=== PATIENT | male | born 1965 | race Caucasian/White ===

== ENCOUNTER 2017-02-19 16:28 | Outpatient (CLI) | payer OTHER ==
--- NOTE | 2017-02-20 07:57 | RAD ---
TWO VIEW CHEST: HISTORY: Shortness of breath. FINDINGS: Lung christianson appear clear. No infiltrate identified. No effusion. Heart size is upper normal. Osse ous structures are unremarkable. IMPRESSION: No evidence of acute process. POS: [facility]
== END 2017-02-19 16:29 | disposition home or self-care (01) ==
LOC: RAD-FRANK 16:28
PROVIDERS: ATTEND Nurse Practitioner Family
DX: R06.02 Shortness of breath (principal)
CPT/HCPCS: 71020

== ENCOUNTER 2017-06-23 15:40 | Inpatient (IN) | payer OTHER ==
[2017-06-23 17:12] LABS: #Eosinphils 0.1 thou/uL (0.0-0.7); #Lymphocytes 1.3 thou/uL (1.20-3.40); #Monocytes 0.7 thou/uL (0.11-0.59); #Neutrophils 12.3 thou/uL (1.40-6.50); %Eosinophils 0.4 % (0.0-10.0); %Monocytes 4.8 % (0.0-10.0); %Neutrophils 85.8 % (42.0-75.0); Hemoglobin 16.3 g/dL (14.0-18.0); Mean Corpuscular HGB CONC 33.1 g/dL (32.0-36.0); Mean Corpuscular Hemoglobin 32.3 pg (27.0-31.0); Mean Corpuscular Volume 97.6 fl (80.0-94.0); Mean Platelet Volume 7.5 fL (7.4-10.4); Platelet Count 121 thou/uL (130-400); RBC Distribution Width 11.3 % (11.5-14.5); Red Blood Cell (RBC) Count 5.04 mill/uL (4.70-6.10); White Blood Cell (WBC) Count 14.3 thou/uL (4.8-10.8)
[2017-06-23 17:35] LABS: ALT (SGPT) 43 U/L (8-55); AST (SGOT) 26 U/L (5-34); Alkaline Phosphatase 90 U/L (40-150); Anion Gap 14 mmol/L (10-20); BUN (Urea Nitrogen) 16 mg/dL (8.9-20.6); Bilirubin, Total 1.2 mg/dL (0.2-1.2); Calc. Creatinine Clearance 0 mL/min (70-130); Calcium 9.1 mg/dL (7.8-10.44); Carbon Dioxide 24 mmol/L (22-29); Chloride 100 mmol/L (98-107); Estimated GFR-MDRD 77; Globulin 3.6 g/dL (2.4-3.5); Glucose 158 mg/dL (70-105); Potassium 3.9 mmol/L (3.5-5.1); Protein, Total 7.6 g/dL (6.0-8.3); Sodium 134 mmol/L (136-145)
[2017-06-23] MEDS ORDERED: MEROPENEM 1 GM/50 ML 1 GM in Premix Bag 1 BAG IVPB SCH (18:30)
--- NOTE | 2017-06-23 19:36 | RAD ---
RIGHT TIBIA AND FIBULA TWO VIEWS: HISTORY: Pain. COMPARISON: None. FINDINGS: No fracture. No cortical irregularity or periosteal reaction. IMPRESSION: Unremarkable two views right tibia and fibula. POS: [facility]
[2017-06-23] MEDS ORDERED: Adacel (T-DAP) 0.5 ML VIAL ONE (19:56)
--- NOTE | 2017-06-23 20:12 | ULT ---
RIGHT LOWER EXTREMITY VENOUS ULTRASOUND WITH DOPPLER: HISTORY: Pain. Edema. COMPARISON: None. TECHNIQUE: Hernandez-scale, color-flow, and Doppler imaging with spectral wave-form analysis was performed of the rig ht lower extremity venous system. FINDINGS: There is compressibility, presence of flow, and augmentation in the common femoral vein, femoral vein , and popliteal vein. There is flow in the greater saphenous vein, profunda vein, and posterior tibi al vein. Note is made of a lymph node in the right groin, measuring 2.7 cm, with a fatty hilum. IMPRESSION: No evidence of thrombus of the right lower extremity deep venous system. POS: [facility]
--- NOTE | 2017-06-23 20:14 | CT ---
RIGHT LOWER EXTREMITY CT: HISTORY: Erythema. COMPARISON: None. TECHNIQUE: A noncontrast CT is performed in the axial plane. Reformatted images are submitted for interpretatio n. FINDINGS: Mild soft tissue edema. No obvious masses or hematoma. Evaluation is limited by lack of IV contrast . No evidence of fracture. IMPRESSION: 1. No fracture. 2. Nonspecific soft tissue edema. POS: [facility]
[2017-06-23 21:37] VITALS: BMI 42.0
[2017-06-23] MEDS ORDERED: Acetaminophen 325 MG TAB PO PRN (21:48)
[2017-06-23] MEDS ORDERED: HYDROcodone/Acetaminophen 5/325 mg Tablet PO PRN (21:48)
[2017-06-23] MEDS: Sodium Chloride 0.9% 1,000 ML IV SCH (21:58)
[2017-06-23 22:13] LABS: Lactic Acid 1.5 mmol/L (0.5-2.2)
[2017-06-24] MEDS: Vancomycin HCl 1.75 GM in Sodium Chloride 0.9% 500 ML IVPB SCH ×3 (01:53→17:41)
--- NOTE | 2017-06-24 02:36 | HP ---
PRIMARY CARE PHYSICIAN: None. PRESENTING COMPLAINT: "Rash in my leg." HISTORY OF PRESENT ILLNESS: Mr. Anup Ferguson is a 51-year-old male with a past medical history of hypertension, who presents to the emergency room due to pain and swelling in his right leg. Dharmesh g to the patient, yesterday he developed some chills and fever and today he noticed some swelling in his right leg, associated with tenderness and erythema. His then encouraged him to come to the hospital. He denies any nausea or vomiting. No diarrhea. There was no trauma to the legs. He had no fever or chills. He has not had any previous episodes in the past. No history of insect bite. H e rates his pain as 4/10, constant, with no aggravating or relieving factor, it does not radiate. At the emergency room, his vital signs were stable. His labs revealed leukocytosis and there was initi al concern for necrotizing fasciitis as he has had rapid progression of the erythema and swelling. e does have a vascular ultrasound, lower extremity CT as well as a tibia/fibula x-ray done, which wer e all negative. Blood cultures were then taken and he was given one dose of meropenem. He was then admitted for right leg cellulitis. PAST MEDICAL HISTORY: Hypertension. PAST SURGICAL HISTORY: None. FAMILY HISTORY: Reviewed and noncontributory. SOCIAL HISTORY: He does not smoke, but he drinks alcohol occasionally, last drink was on Friday. He does not use illicit drugs. ALLERGIES: None. HOME MEDICATIONS: Atenolol 100 mg daily. REVIEW OF SYSTEMS: A 12-point review of systems conducted and was negative unless as stated in HPI. PHYSICAL EXAMINATION: VITAL SIGNS: Blood pressure 147/83, temperature 97.9 degree Fahrenheit, heart rate 75, respiratory r ate 18, oxygen saturation 98% on room air. GENERAL: Not in acute distress, sleeping comfortably, but easily aroused. Does not seem to be in an y pain. HEENT: Normocephalic, atraumatic. Not pale, anicteric. Moist mucous membranes. PERRLA, EOMI. NECK: Supple, full range of movement. No JVD. RESPIRATORY: Vesicular breath sounds bilaterally. No rales, rhonchi or wheezes. CARDIOVASCULAR: S1, S2, only with regular rate and rhythm. No murmurs, rubs or gallops. ABDOMEN: Soft, nontender, nondistended. Bowel sounds are normoactive. No hepatosplenomegaly. MUSCULOSKELETAL: Erythema, tenderness and swelling in the lateral aspect of the right leg, extensive . SKIN: Rash, erythema as above. EXTREMITIES: No bilateral lower extremity edema. PSYCHIATRIC: Normal mood and affect. NEUROLOGIC: Alert and well oriented. No focal deficits. LABORATORY DATA: WBC 14,300, platelet count 121,000. Serum chemistry largely unremarkable. Blood g lucose 158, sodium 134. Lactic acid initially was 2.7, but on repeat with hydration was 1.5. IMAGING: As stated in the HPI. ASSESSMENT AND PLAN: 1. Right lower leg cellulitis: The patient has been started on IV hydration, we will continue on va ncomycin and ceftriaxone. We will follow up on blood cultures and ensure adequate pain control. 2. Hypertension: Blood pressure is fairly well controlled. We will resume atenolol and monitor blo od pressure. 3. Thrombocytopenia: Unclear etiology, but no signs of acute bleeding. We will avoid heparin based products and monitor platelet count. The patient is ambulatory and young, so would not require any further DVT prophylaxis. CODE STATUS: FULL CODE.
[2017-06-24 04:48] LABS: #Basophils 0.1 thou/uL (0.0-0.2); #Eosinphils 0.1 thou/uL (0.0-0.7); #Lymphocytes 1.1 thou/uL (1.20-3.40); #Monocytes 0.5 thou/uL (0.11-0.59); #Neutrophils 10.1 thou/uL (1.40-6.50); %Basophils 0.7 % (0.0-1.0); %Eosinophils 0.4 % (0.0-10.0); %Lymphocytes 9.4 % (21.0-51.0); %Monocytes 4.5 % (0.0-10.0); Hemoglobin 15.2 g/dL (14.0-18.0); Mean Corpuscular HGB CONC 33.4 g/dL (32.0-36.0); Mean Corpuscular Hemoglobin 32.4 pg (27.0-31.0); Mean Platelet Volume 8.1 fL (7.4-10.4); Platelet Count 113 thou/uL (130-400); RBC Distribution Width 11.3 % (11.5-14.5); Red Blood Cell (RBC) Count 4.68 mill/uL (4.70-6.10); White Blood Cell (WBC) Count 11.9 thou/uL (4.8-10.8)
[2017-06-24 05:00] LABS: Anion Gap 8 mmol/L (10-20); BUN (Urea Nitrogen) 12 mg/dL (8.9-20.6); Calc. Creatinine Clearance 197 mL/min (70-130); Calcium 8.2 mg/dL (7.8-10.44); Carbon Dioxide 25 mmol/L (22-29); Chloride 103 mmol/L (98-107); Estimated GFR-MDRD 86; Glucose 162 mg/dL (70-105); Potassium 3.6 mmol/L (3.5-5.1); Sodium 132 mmol/L (136-145)
[2017-06-24] MEDS: Sodium Chloride 0.9% 1,000 ML IV SCH ×2 (06:08→08:47)
[2017-06-24] MEDS: Atenolol 50 MG TAB PO SCH (08:44)
[2017-06-24] MEDS: cefTRIAXone\\ROCEPHIN 1 GM in Sterile Water 10 ML SLOW IVP SCH (08:45)
[2017-06-24] MEDS ORDERED: Docusate 100 MG CAP PO SCH (09:00)
[2017-06-24] MEDS ORDERED: Heparin 5,000 UNITS/ML VIAL SC SCH (09:00)
[2017-06-24] MEDS ORDERED: Ibuprofen 200 MG TAB PO PRN (13:37)
[2017-06-24] MEDS ORDERED: hydrALAZINE 20 MG/ML VIAL SLOW IVP PRN (13:38)
[2017-06-24] MEDS ORDERED: Polyethylene Glycol 3350 17 GM Packet PO PRN (13:40)
[2017-06-24] MEDS: Ibuprofen 200 MG TAB PO SCH (17:40)
--- NOTE | 2017-06-24 21:37 | PDOC.PN ---
- Subjective Encounter Start Date: 06/24/17 Encounter Start Time: 11:30 Patient seen and examined. No new complaints. No overnight events - Objective Resuscitation Status: Resuscitation Status FULL:Full Resuscitation MAR Reviewed: Yes Vital Signs & Weight: Vital Signs (12 hours) Temp Pulse Resp BP BP Pulse Ox 06/24/17 16:10 98.5 F 77 18 131/62 95 06/24/17 11:35 98.8 F 73 18 127/77 93 L Weight Weight 319 lb 0.142 oz Result Diagrams: 06/24/17 04:13 06/24/17 04:13 Additional Labs: Microbiology 06/23/17 17:02 Venous blood - Right Arm Blood Culture - Preliminary Specimen has been received and culture in progress. No Growth to date. 06/23/17 17:02 Venous blood - Left Arm Blood Culture - Preliminary Specimen has been received and culture in progress. No Growth to date. Laboratory Tests 06/23/17 06/23/17 06/23/17 17:08 17:08 17:08 ESR Westergren 35 Lactic Acid 2.7 H C-Reactive Protein 21.89 H 06/23/17 21:51 ESR Westergren Lactic Acid 1.5 C-Reactive Protein Radiology Reviewed by me: Yes (RLE CT - soft tissue edema) Phys Exam - Physical Examination Constitutional: NAD Neck: no nodes, no JVD, supple Respiratory: no wheezing, no rales, no rhonchi, clear to auscultation bilateral Cardiovascular: RRR, no rub no heaves/pulsations Gastrointestinal: soft, non-tender, no distention, positive bowel sounds Musculoskeletal: pulses present RLE erythema/tenderness - improving Neurological: non-focal, normal sensation, moves all 4 limbs Psychiatric: normal affect, A&O x 3 Dx/Plan - Plan out of bed/ambulate, DVT proph w/SCDs IMPRESSION: 1. Sepsis due to RLE Cellulitis 2. HTN 3. Morbid obesity BMI 42.1 4. Lactic acidosis and thrombocytopenia due to sepsis PLAN: * Cont Vancomcycin and Ceftriaxone * Ambulate * Pain control * Cont Atenolol * Monitor Vanc levels Review of Systems - Review of Systems Respiratory: negative: Cough, Dry, Shortness of Breath, Hemoptysis, SOB with Excertion, Pleuritic Pain, Sputum, Wheezing Cardiovascular: negative: chest pain, palpitations, orthopnea, paroxysmal nocturnal dyspnea, edema, light headedness, other - Medications/Allergies Allergies/Adverse Reactions: Allergies Allergy/AdvReac Type Severity Reaction Status Date / Time No Known Allergies Allergy Verified 09/22/12 11:51 Medications: Current Medications Acetaminophen (Tylenol) 650 mg PO Q4H PRN PRN Reason: Headache/Fever or Pain Hydrocodone Bitart/Acetaminophen ([place] 5/325) 1 tab PO Q4H PRN PRN Reason: Moderate Pain (4-6) Last Admin: 06/24/17 03:50 Dose: 1 tab Atenolol (Tenormin) 100 mg PO DAILY [facility] Last Admin: 06/24/17 08:44 Dose: 100 mg Hydralazine HCl (Apresoline) 10 mg SLOW IVP Q4H PRN PRN Reason: SBP Greater Than 180 Ceftriaxone Sodium 1 gm/ (Sterile Water) 10 mls @ 120 mls/hr SLOW IVP Q24HR [facility] Last Admin: 06/24/17 08:45 Dose: 10 mls Vancomycin HCl 1.75 gm/ Sodium (Chloride) 500 mls @ 250 mls/hr IVPB 0200,1000, 1800 [facility] Last Admin: 06/24/17 17:41 Dose: 500 mls Ibuprofen (Motrin) 400 mg PO Q6H PRN PRN Reason: Moderate Pain (4-6) Ibuprofen (Motrin) 400 mg PO TID-[facility] Stop: 06/25/17 12:01 Last Admin: 06/24/17 17:40 Dose: 400 mg Miscellaneous Medication (Pharmacy To Dose) 1 each IVPB PRN PRN PRN Reason: Pharmacy to dose Polyethylene Glycol (Miralax) 17 gm PO DAILY PRN PRN Reason: Constipation Saccharomyces Boulardii (Florastor) 250 mg PO DAILY [facility] Sodium Chloride (Flush - Normal Saline) 10 ml IVF Q12HR [facility] Last Admin: 06/24/17 20:38 Dose: Not Given Sodium Chloride (Flush - Normal Saline) 10 ml IVF PRN PRN PRN Reason: Saline Flush
[2017-06-25 01:31] LABS: Vancomycin, Trough 12.2 ug/mL
[2017-06-25] MEDS: Ibuprofen 200 MG TAB PO SCH ×2 (09:35→11:25)
[2017-06-25] MEDS: Atenolol 50 MG TAB PO SCH (09:36)
[2017-06-25] MEDS: Saccharomyces boulardii 250 MG CAP PO SCH (09:37)
[2017-06-25] MEDS: cefTRIAXone\\ROCEPHIN 1 GM in Sterile Water 10 ML SLOW IVP SCH (09:38)
[2017-06-25] MEDS ORDERED: Diabetic Tussin 200 MG/10 ML UDCUP PO PRN (18:47)
[2017-06-25] MEDS ORDERED: diphenhydrAMINE 25 MG CAP PO SCH (19:00)
[2017-06-25] MEDS ORDERED: Cepastat Lozenges 1 LOZ PO PRN (21:04)
[2017-06-25] MEDS ORDERED: diphenhydrAMINE 25 MG CAP PO PRN (21:04)
--- NOTE | 2017-06-25 21:05 | PDOC.PN ---
- Subjective Encounter Start Date: 06/25/17 Encounter Start Time: 14:30 Patient seen and examined. No new complaints. No overnight events. RLE swelling improving - Objective Resuscitation Status: Resuscitation Status FULL:Full Resuscitation MAR Reviewed: Yes Vital Signs & Weight: Vital Signs (12 hours) Temp Pulse Resp BP BP Pulse Ox 06/25/17 20:11 98.4 F 68 18 158/89 H 97 06/25/17 09:36 79 154/99 H Weight Weight 319 lb 0.142 oz I&O: 06/24/17 06/25/17 06/26/17 06:59 06:59 06:59 Intake Total 600 1950 Balance 600 1950 Result Diagrams: 06/26/17 03:52 06/26/17 03:52 Phys Exam - Physical Examination Constitutional: NAD Respiratory: no wheezing, no rhonchi Cardiovascular: RRR, no rub Gastrointestinal: soft, non-tender, positive bowel sounds Musculoskeletal: pulses present RLE erythema improving Neurological: moves all 4 limbs Dx/Plan - Plan DVT proph w/SCDs IMPRESSION: 1. Sepsis due to RLE Cellulitis - on Vancomcycin and Ceftriaxone 2. HTN 3. Morbid obesity BMI 42.1 4. Lactic acidosis and thrombocytopenia due to sepsis PLAN: * Cont Atbx * Possible dc in 06/26 if stable * Cont Atenolol * Monitor Vanc levels * Cont current meds as below Review of Systems - Review of Systems Respiratory: negative: Cough, Dry, Shortness of Breath, Hemoptysis, SOB with Excertion, Pleuritic Pain, Sputum, Wheezing Cardiovascular: negative: chest pain, palpitations, orthopnea, paroxysmal nocturnal dyspnea, edema, light headedness, other - Medications/Allergies Allergies/Adverse Reactions: Allergies Allergy/AdvReac Type Severity Reaction Status Date / Time No Known Allergies Allergy Verified 09/22/12 11:51 Medications: Current Medications Acetaminophen (Tylenol) 650 mg PO Q4H PRN PRN Reason: Headache/Fever or Pain Hydrocodone Bitart/Acetaminophen (Hal[place] 5/325) 1 tab PO Q4H PRN PRN Reason: Moderate Pain (4-6) Last Admin: 06/24/17 03:50 Dose: 1 tab Atenolol (Tenormin) 100 mg PO DAILY [facility] Last Admin: 06/25/17 09:36 Dose: 100 mg Diphenhydramine HCl (Benadryl) 25 mg PO Q6H PRN PRN Reason: Itching & Insomnia Guaifenesin (Robitussin Sf) 100 mg PO ONE PRN PRN Reason: . Stop: 06/28/17 18:48 Hydralazine HCl (Apresoline) 10 mg SLOW IVP Q4H PRN PRN Reason: SBP Greater Than 180 Ceftriaxone Sodium 2 gm/ (Sodium Chloride) 100 mls @ 200 mls/hr IVPB DAILY [facility] Vancomycin HCl 2 gm/ Sodium (Chloride) 500 mls @ 250 mls/hr IVPB 0000,0800, 1600 [facility] Last Admin: 06/25/17 15:02 Dose: 500 mls Ibuprofen (Motrin) 400 mg PO Q6H PRN PRN Reason: Moderate Pain (4-6) Loratadine (Claritin) 10 mg PO DAILY [facility] Miscellaneous Medication (Pharmacy To Dose) 1 each IVPB PRN PRN PRN Reason: Pharmacy to dose Polyethylene Glycol (Miralax) 17 gm PO DAILY PRN PRN Reason: Constipation Saccharomyces Boulardii (Florastor) 250 mg PO DAILY [facility] Last Admin: 06/25/17 09:37 Dose: 250 mg Sodium Chloride (Flush - Normal Saline) 10 ml IVF Q12HR [facility] Last Admin: 06/25/17 20:14 Dose: Not Given Sodium Chloride (Flush - Normal Saline) 10 ml IVF PRN PRN PRN Reason: Saline Flush Throat Lozenges (Cepastat Lozenges) 1 hoa PO Q2H PRN PRN Reason: Sore Throat
[2017-06-25 23:23] LABS: Vancomycin, Trough 22.8 ug/mL
[2017-06-26] MEDS: Vancomycin HCl 1.5 GM in Sodium Chloride 0.9% 250 ML 300 ML IVPB SCH ×3 (00:18→15:45)
[2017-06-26 04:45] LABS: #Basophils 0.1 thou/uL (0.0-0.2); #Eosinphils 0.2 thou/uL (0.0-0.7); #Lymphocytes 1.7 thou/uL (1.20-3.40); #Monocytes 0.8 thou/uL (0.11-0.59); #Neutrophils 4.6 thou/uL (1.40-6.50); %Basophils 1.1 % (0.0-1.0); %Eosinophils 2.2 % (0.0-10.0); %Lymphocytes 23.6 % (21.0-51.0); %Neutrophils 62.1 % (42.0-75.0); Hemoglobin 14.3 g/dL (14.0-18.0); Mean Corpuscular HGB CONC 35.1 g/dL (32.0-36.0); Mean Corpuscular Hemoglobin 34.4 pg (27.0-31.0); Mean Corpuscular Volume 97.9 fl (80.0-94.0); Platelet Count 144 thou/uL (130-400); Red Blood Cell (RBC) Count 4.15 mill/uL (4.70-6.10); White Blood Cell (WBC) Count 7.3 thou/uL (4.8-10.8)
[2017-06-26 05:08] LABS: Anion Gap 7 mmol/L (10-20); BUN (Urea Nitrogen) 11 mg/dL (8.9-20.6); Calc. Creatinine Clearance 218 mL/min (70-130); Calcium 8.4 mg/dL (7.8-10.44); Carbon Dioxide 30 mmol/L (22-29); Chloride 105 mmol/L (98-107); Estimated GFR-MDRD Greater than 90; Glucose 99 mg/dL (70-105); Potassium 3.7 mmol/L (3.5-5.1); Sodium 138 mmol/L (136-145)
[2017-06-26] MEDS: metroNIDAZOLE 500 MG TAB PO SCH ×2 (07:54→14:20)
[2017-06-26] MEDS: Saccharomyces boulardii 250 MG CAP PO SCH (07:54)
[2017-06-26 08:18] VITALS: BP 163/81; TEMP 97.9
[2017-06-26] MEDS ORDERED: Loratadine 10 MG TAB PO SCH (09:00)
[2017-06-26] MEDS ORDERED: cefTRIAXone\\ROCEPHIN 2 GM in Sodium Chloride 0.9% 100 ML IVPB SCH (09:00)
[2017-06-26] MEDS: Atenolol 50 MG TAB PO SCH (09:20)
--- NOTE | 2017-06-26 18:28 | DIS ---
DATE OF DISCHARGE: 06/26/2017 DISCHARGE DISPOSITION: Home. FOLLOWUP: With primary care physician, Julianne Francis, in 1 week. DISCHARGE MEDICATIONS: Doxycycline 100 mg twice a day for 14 days, Augmentin 875 mg twice a day for 14 days. ALLERGIES: No known drug allergies. The patient was seen on the day of discharge. Denies any new complaints. No chest pain, shortness o f breath or palpitations. SIGNIFICANT LABORATORIES: 1. ESR 35. CRP 21.89. 2. Lactic acid on admission 2.7. Repeat lactic acid was 1.5. 3. WBC on admission was 14.3, at discharge is 7.3. 4. Sodium on admission 134, at discharge 138. Lowest sodium was 132. 5. Blood cultures negative at 48 hours. 6. Please follow up on final blood cultures. 7. Tibia and fibula x-ray was negative. 8. CT scan of the right lower extremity showed nonspecific soft tissue edema. 9. Ultrasound of the right lower extremity was negative for DVT. BRIEF HOSPITAL COURSE: The patient is a 51-year-old male with hypertension, who [facility] swelling and rash of right lower extremity. Please refer to the history and phy sical dated 06/23/2017 for further details. The patient was admitted to the hospital with a diagnosis of sepsis secondary to right lower extremit y cellulitis. He was started on vancomycin and ceftriaxone. Vancomycin levels were monitored. The swelling and erythema has significantly improved compared to admission. He will continue antibiotics for 2 more weeks. If his swelling persists, then he may benefit from an infectious disease consulta tion or chronic suppressive therapy. Plan of care was discussed with the patient in detail. He stat ed understanding. FINAL DIAGNOSES: 1. Sepsis secondary to right lower extremity cellulitis. 2. Hypertension. 3. Morbid obesity with a BMI 42.1. 4. Lactic acidosis secondary to sepsis. 5. Thrombocytopenia secondary to sepsis. 6. Hyponatremia, resolved. 7. Macrocytosis. 8. Primary care physician advised to follow. 9. Chronic kidney disease stage 2. 10. Elevated inflammatory markers. 11. Please follow up on final blood cultures.
== END 2017-06-26 18:13 | disposition home or self-care (01) | DRG 872 ==
LOC: ERS 15:40 → T4-B 19:00
PROVIDERS: ADMIT Family Medicine; ATTEND Family Medicine
DX: A41.9 Sepsis, unspecified organism (principal); E87.2 Acidosis; E66.01 Morbid (severe) obesity due to excess calories; D69.6 Thrombocytopenia, unspecified; E87.1 Hypo-osmolality and hyponatremia; Z68.41 Body mass index [BMI] 40.0-44.9, adult; L03.115 Cellulitis of right lower limb; N18.2 Chronic kidney disease, stage 2 (mild); I12.9 Hypertensive chronic kidney disease with stage 1 through stage 4 chronic kidney disease, or unspecified chronic kidney disease; D75.89 Other specified diseases of blood and blood-forming organs
CPT/HCPCS: 36415; 80048; 80053; 80202; 82550; 83605; 85025; 85652; 86140; 87040; 90471; 90715; 96361; 96365; 96368; A4216; J0696; J2185; J3370; J7050

== ENCOUNTER 2017-09-01 10:57 | Outpatient (CLI) | payer OTHER ==
--- NOTE | 2017-09-01 13:08 | ULT ---
THYROID ULTRASOUND: Date: 09/01/17 INDICATION: Hypertension, hyperlipidemia, and edema given as reasons for exam. FINDINGS: Both lobes of the thyroid are homogeneous. Right lobe measures 5.1 x 2.2 x 2.5 cm. Left lobe measures 5.1 x 1.7 x 2.4 cm. An ill-defined hypoechoic nodule in the inferior left lobe measures approximately 1.0 cm. There is al so a faint hypoechoic nodule in the inferior right lobe measuring up to 1.2 cm. IMPRESSION: Faint hypoechoic nodules involving the inferior aspect of both lobes. Recommend follow-up ultrasound exam in 6 months to reevaluate. POS: [facility]
== END 2017-09-01 10:58 | disposition home or self-care (01) ==
LOC: SCSULT 10:57
PROVIDERS: ATTEND Nurse Practitioner Family
DX: E78.5 Hyperlipidemia, unspecified (principal); R60.0 Localized edema; I10 Essential (primary) hypertension; E04.2 Nontoxic multinodular goiter
CPT/HCPCS: 76536

== ENCOUNTER 2017-10-01 09:34 | Day surgery (SDC) | payer OTHER ==
[2017-09-30 12:35] VITALS: BMI 38.0
[2017-10-01] MEDS ORDERED: Lidocaine 1% PF 5 ML VIAL ONE (10:23)
[2017-10-01] MEDS ORDERED: Sodium Bicarbonate 2.5 MEQ/5 ML VIAL ONE (10:35)
--- NOTE | 2017-10-01 11:45 | ULT ---
ULTRASOUND GUIDED THYROID FINE NEEDLE ASPIRATION: Date: 10/01/17 HISTORY: Thyroid nodule. COMPARISON: Thyroid ultrasound dated 09/01/17. FINDINGS: The patient was brought to the ultrasound suite and all questions were answered. The thyroid was evaluated with preprocedure imaging. There was actually no definite nodule identified in either lobe. This could be artifactual due to the thickness of the patient's neck and the depth o f the inferior pole of the thyroid. No thyroid fine needle aspiration was performed and there was no definite nodule appreciated. IMPRESSION: No thyroid fine needle aspiration was performed as there was no definite nodule appreciated and was l ikely artifactual due to the depth of the thyroid and the thickness of the neck. Follow-up in 6 month s to 1 year recommended. POS: [facility]
[2017-10-01 13:02] VITALS: BP 145/87; TEMP 98.1
== END 2017-10-01 11:15 | disposition home or self-care (01) ==
LOC: ULT 09:34
PROVIDERS: ATTEND Specialist
DX: E07.89 Other specified disorders of thyroid (principal)
CPT/HCPCS: 76536; J2001

== ENCOUNTER 2018-03-05 07:33 | Outpatient (CLI) | payer OTHER ==
--- NOTE | 2018-03-05 08:15 | RAD ---
TWO VIEW CHEST: COMPARISON: 02/19/2017. FINDINGS: There is o consolidation, effusion, or pneumothorax. Cardiac silhouette is normal in size. Osseous structures intact. IMPRESSION: No focal consolidation. POS: [facility]
== END 2018-03-05 07:34 | disposition home or self-care (01) ==
LOC: RAD-FRANK 07:33
PROVIDERS: ATTEND Nurse Practitioner Family
DX: R06.02 Shortness of breath (principal)
CPT/HCPCS: 71046

== ENCOUNTER 2019-01-27 08:51 | Outpatient (CLI) | payer OTHER ==
--- NOTE | 2019-01-27 09:31 | CT ---
EXAM: CT of the chest with contrast HISTORY: Chest pain with history of costochondritis COMPARISON: None TECHNIQUE: Multiple contiguous axial images were obtained in a CT the chest with contrast. Coronal an d sagittal reformats were performed. FINDINGS: HEART: Normal in size without focal cardiac abnormality MEDIASTINUM: No hilar or mediastinal lymphadenopathy. LUNGS: No focal infiltrates, nodules, or masses. PLEURAL SPACE: No pneumothorax or pleural effusion. CHEST WALL SOFT TISSUES: Unremarkable OSSEOUS STRUCTURES: Degenerative changes in the spine. There is developing calcification of the costo chondral cartilage bilaterally. VISUALIZED SUBDIAPHRAGMATIC STRUCTURES: Postsurgical changes in the stomach. IMPRESSION: No evidence of acute intrathoracic abnormality.
== END 2019-01-27 08:52 | disposition home or self-care (01) ==
LOC: BICCT 08:51
PROVIDERS: ATTEND Nurse Practitioner Family
DX: R07.1 Chest pain on breathing (principal)
CPT/HCPCS: 71260

== ENCOUNTER 2020-02-14 10:18 | Outpatient (CLI) | payer OTHER ==
--- NOTE | 2020-02-14 11:07 | RAD ---
XR Cervical Spine 4 View Min History: Spondylosis Comparison: None. Findings: No acute cervical spine fracture or malalignment. Open-mouth odontoid view is normal. Upper ribs are intact. Flowing bridging osteophytes from C2-C7. No listhesis. No abnormal translation with flexion or extens ion which is limited. The disc spaces are relatively maintained with only minimal narrowing at C3/C4, C4/C5, and C6/C7. Impression: 1. Limited range of motion with flexion/extension due to flowing bridging osteophytes from C2-C7. 2. No acute fracture or malalignment. 3. No listhesis.
--- NOTE | 2020-02-14 11:09 | RAD ---
XR Lumbar Spine Min 4 View History: Pain Comparison: None. Findings: No acute fracture or malalignment. Mild narrowing of the interspinous space L2-L5. No signi ficant listhesis. No translation with flexion or extension. Low-grade posterior L3/L4 and L4/L5 posterior disc space height loss. Impression: 1. Low-grade spondylosis. No acute osseous abnormality. 2. No abnormal translation with flexion or extension. 3. Narrowed interspinous space L2-L5 with osseous remodeling can be a source of chronic pain with lum bar extension.
--- NOTE | 2020-02-14 11:15 | CT ---
CT OF THE THORAX WITHOUT IV CONTRAST INDICATION: Right-sided chest pain COMPARISON: Prior CT the chest with contrast dated January 27, 2019 FINDINGS: LUNGS: No suspicious pulmonary nodule identified. Pleural spaces: Clear Lymph nodes: No pathologically enlarged lymph nodes. Heart and great vessels: The lack of IV contrast limits interrogation of the heart and great vessels. There is scattered thoracic and coronary artery calcifications. Upper abdomen: There is postsurgical change of a prior gastroplasty. The unopacified adrenal glands a re normal appearing. Osseous structures: No acute fracture or subluxation demonstrated. There is scattered degenerative an d osteoarthritic change present. IMPRESSION: No acute cardiopulmonary abnormality.
== END 2020-02-14 10:19 | disposition home or self-care (01) ==
LOC: RAD 10:18
PROVIDERS: ATTEND Physician Assistant Medical
DX: M54.2 Cervicalgia (principal); M54.9 Dorsalgia, unspecified; R07.9 Chest pain, unspecified; M47.816 Spondylosis without myelopathy or radiculopathy, lumbar region; M25.78 Osteophyte, vertebrae
CPT/HCPCS: 71250; 72050; 72110

== ENCOUNTER 2020-03-09 12:47 | Outpatient (CLI) | payer OTHER ==
--- NOTE | 2020-03-09 13:30 | RAD ---
EXAM: XR Hip Rt 2-3 View PROVIDED CLINICAL HISTORY: Pain COMPARISON: None FINDINGS: There is no evidence for fracture or other acute osseous abnormality. There is acetabular over covera ge, which can predispose to femoral-acetabular impingement. Right hip joint space appears preserved. Alignment appears anatomic. Small osteophytes are seen. IMPRESSION: Mild right hip degenerative change.
--- NOTE | 2020-03-09 13:31 | RAD ---
EXAM: XR Sacroiliac Joints >=3 View PROVIDED CLINICAL HISTORY: Sacroiliitis COMPARISON: None FINDINGS: There is no evidence for fracture. The sacroiliac joints appear symmetric in terms of width. There is no periarticular sclerosis or erosion of the subchondral bone plate evident. No lytic or blastic lesions are evident. IMPRESSION: No radiographic evidence for sacroiliitis.
== END 2020-03-09 12:48 | disposition home or self-care (01) ==
LOC: BICRAD 12:47
PROVIDERS: ATTEND Internal Medicine Rheumatology
DX: M25.551 Pain in right hip (principal); M46.1 Sacroiliitis, not elsewhere classified; M16.11 Unilateral primary osteoarthritis, right hip
CPT/HCPCS: 72202

== ENCOUNTER 2020-12-13 12:46 | Outpatient (CLI) | payer OTHER | END 2020-12-13 12:47 | disposition home or self-care (01) | LOC: BICRAD 12:46 | PROVIDERS: ATTEND Neurological Surgery | DX: M54.2 Cervicalgia (principal); M47.812 Spondylosis without myelopathy or radiculopathy, cervical region | CPT/HCPCS: 72050 ==

== ENCOUNTER 2020-12-14 13:15 | Outpatient (CLI) | payer SELFPAY ==
[2020-12-14 14:31] LABS: #Eosinphils 0.1 10x3/uL (0.0-0.5); #Monocytes 0.6 10x3/uL (0.0-1.1); #Neutrophils 4.1 10x3/uL (1.5-8.4); %Basophils 0.5 % (0.0-2.0); %Eosinophils 0.8 % (0.0-6.0); %Lymphocytes 28.7 % (18.0-47.0); %Monocytes 8.3 % (0.0-10.0); %Neutrophils 61.4 % (40.0-75.0); Hemoglobin 15.7 g/dL (13.5-17.5); Mean Corpuscular HGB CONC 33.5 g/dL (32.0-36.0); Mean Corpuscular Hemoglobin 32.3 pg (27.0-33.0); Mean Corpuscular Volume 96.5 fl (81.2-95.1); Mean Platelet Volume 10.7 fl (7.4-10.4); Platelet Count 156 10x3/uL (150-450); RBC Distribution Width 11.5 % (11.5-14.5); Red Blood Cell (RBC) Count 4.86 10x6/uL (4.32-5.72); White Blood Cell (WBC) Count 6.6 10x3/uL (3.5-10.5)
[2020-12-14 14:42] LABS: Anion Gap 11 mmol/L (10-20); BUN (Urea Nitrogen) 12 mg/dL (8.4-25.7); Calc. Creatinine Clearance 0 mL/min (70-130); Calcium 9.8 mg/dL (7.8-10.44); Carbon Dioxide 27 mmol/L (22-29); Chloride 106 mmol/L (98-107); Glucose 83 mg/dL (70-105); Potassium 4.5 mmol/L (3.5-5.1); Sodium 139 mmol/L (136-145)
[2020-12-15 01:06] LABS: SARS-CoV-2 PCR by NAA Not Detected (NotDetected)
== END 2020-12-14 13:16 | disposition home or self-care (01) ==
LOC: LABBT 13:15
PROVIDERS: ATTEND Specialist
DX: Z01.818 Encounter for other preprocedural examination (principal); K64.8 Other hemorrhoids; K64.4 Residual hemorrhoidal skin tags; Z20.822 Contact with and (suspected) exposure to COVID-19
CPT/HCPCS: 80048; 85025; 93005; 93010; U0003; U0005

== ENCOUNTER 2020-12-19 08:28 | Day surgery (SDC) | payer OTHER, SELFPAY ==
[2020-12-18 14:52] VITALS: BMI 31.0
[2020-12-19] MEDS ORDERED: Ketorolac Tromethamine 30 MG/ML VIAL ONE (09:11)
[2020-12-19] MEDS ORDERED: Acetaminophen 500 MG TAB ONE ×2 (09:11→09:12)
[2020-12-19] MEDS ORDERED: ceFAZolin 2 GM/DEX 5% 100 ML BAG ONE (09:11)
[2020-12-19] MEDS ORDERED: Fentanyl 100 MCG/2 ML VIAL ONE ×2 (09:40)
[2020-12-19] MEDS ORDERED: Promethazine HCl 25 MG/ML VIAL ONE (09:40)
[2020-12-19] MEDS ORDERED: PHENYLEPHRINE-NS 100 MCG/ML 10 ML SYRINGE ONE (09:40)
[2020-12-19] MEDS ORDERED: Phenylephrine 10 MG/ML VIAL ONE (09:41)
[2020-12-19] MEDS ORDERED: Bupivacaine 0.25% HCL 30 ML VIAL ONE (09:42)
[2020-12-19] MEDS ORDERED: Lidocaine 1% w/Epinephrine 1:100K 20 ML VIAL ONE (09:42)
[2020-12-19] MEDS ORDERED: Lidocaine 2% Jelly 5 ML TUBE ONE (09:42)
[2020-12-19] MEDS ORDERED: Lidocaine 1% PF 5 ML VIAL ONE (09:55)
[2020-12-19] MEDS ORDERED: Ondansetron PF 4 MG/2 ML Vial ONE (09:55)
[2020-12-19] MEDS ORDERED: Dexamethasone 20 MG/5 ML VIAL ONE (09:55)
[2020-12-19] MEDS ORDERED: PROPOFOL 200 MG/20 ML VIAL ONE (09:55)
[2020-12-19] MEDS ORDERED: Rocuronium Bromide 10 MG/ML (10ML VIAL) ONE (09:55)
[2020-12-19] MEDS ORDERED: Glycopyrrolate 0.2 MG/ML 5 ML SYRINGE ONE (09:55)
== END 2020-12-19 12:40 | disposition home or self-care (01) ==
LOC: SDC 08:28
PROVIDERS: ATTEND Specialist
PROC: 06BY0ZC Excision of Hemorrhoidal Plexus, Open Approach (ICD-10-PCS; principal; 2020-12-19)
DX: K64.8 Other hemorrhoids (principal); I10 Essential (primary) hypertension; F17.210 Nicotine dependence, cigarettes, uncomplicated; M54.50 Low back pain, unspecified; Z98.84 Bariatric surgery status; Z98.890 Other specified postprocedural states; Z79.890 Hormone replacement therapy; Z79.899 Other long term (current) drug therapy
CPT/HCPCS: J1100; J1885; J2370; J2405; J2550; J2704; J3010; S0020

== ENCOUNTER 2022-11-13 08:21 | Outpatient (CLI) | payer OTHER | END 2022-11-13 08:22 | disposition home or self-care (01) | LOC: RAD-FRANK 08:21 | PROVIDERS: ATTEND Nurse Practitioner Family | DX: R05.2 Subacute cough (principal); Z86.16 Personal history of COVID-19 | CPT/HCPCS: 71046 ==